=== PATIENT | female | born 1975 | race Caucasian/White ===

== ENCOUNTER 2023-05-30 20:29 | Emergency (ER) | payer OTHER ==
[~2023-05-30] VITALS: Ht 149.9 cm; Wt 68.0 kg
[2023-05-30 20:43] VITALS: O2SAT 99
[2023-05-30] MEDS ORDERED: TOPUD MT (22:11)
[2023-05-30] MEDS ORDERED: ACETAMINOPHEN 325MG TABLET PO ONE (22:15)
[2023-05-31 01:30] VITALS: BP 150/80; PULSE 95; RESP 20; TEMP 99
== END 2023-05-31 01:49 | disposition home or self-care (01) ==
LOC: ER 20:29
DX: S40.011A Contusion of right shoulder, initial encounter (principal); E11.9 Type 2 diabetes mellitus without complications; E78.00 Pure hypercholesterolemia, unspecified; Y08.89XA Assault by other specified means, initial encounter; Y93.89 Activity, other specified; Y92.89 Other specified places as the place of occurrence of the external cause; Y99.8 Other external cause status
CPT/HCPCS: 73030; 99283